=== PATIENT | female | born 1940 | race African-American/Black ===

== ENCOUNTER 2017-04-08 18:21 | Emergency (ER) | payer MEDICARE, MEDICAID ==
--- NOTE | 2017-04-08 19:38 | RAD ---
UPRIGHT PORTABLE CHEST ONE VIEW: 04/08/17 HISTORY: 77-year-old female with altered mental status. Monitor leads overlie the chest. Heart size is within normal limits. The lungs are clear. IMPRESSION: No acute intrathoracic disease. No evidence for pneumonia. POS: [facility]
[2017-04-08 19:57] LABS: #Eosinphils 0.5 thou/uL (0.0-0.7); #Lymphocytes 1.5 thou/uL (1.20-3.40); #Monocytes 0.7 thou/uL (0.11-0.59); #Neutrophils 4.2 thou/uL (1.40-6.50); %Basophils 0.2 % (0.0-1.0); %Eosinophils 7.6 % (0.0-10.0); %Lymphocytes 21.9 % (21.0-51.0); %Monocytes 9.8 % (0.0-10.0); Hematocrit 35.2 % (36.0-47.0); Mean Platelet Volume 7.9 fL (7.4-10.4); Red Blood Cell (RBC) Count 4.57 mill/uL (4.20-5.40); White Blood Cell (WBC) Count 6.9 thou/uL (4.8-10.8)
[2017-04-08 20:09] LABS: ALT (SGPT) 9 U/L (8-55); AST (SGOT) 14 U/L (5-34); Alkaline Phosphatase 97 U/L (40-150); Anion Gap 13 mmol/L (10-20); BUN (Urea Nitrogen) 18 mg/dL (9.8-20.1); Bilirubin, Total 0.3 mg/dL (0.2-1.2); Calc. Creatinine Clearance 0 mL/min (70-130); Calcium 9.2 mg/dL (7.8-10.44); Carbon Dioxide 20 mmol/L (23-31); Chloride 106 mmol/L (98-107); Estimated GFR-MDRD 41; Globulin 3.6 g/dL (2.4-3.5); Protein, Total 6.9 g/dL (6.0-8.3)
[2017-04-08 20:11] LABS: Bilirubin Small (Negative); Blood, Urine Negative (Negative); Glucose, Urine (Dipstick) Negative (Negative); Ketone, Urine Trace mg/dL (Negative); Nitrite Negative (Negative); Protein, Urine (Dipstick) Trace mg/dL (Neg-Trace); Urobilinogen 0.2 mg/dL (0.2-1.0)
[2017-04-08 20:14] LABS: Bacteria/HPF None Seen HPF (None Seen); RBC/HPF 0-3 HPF (0-3); Squamous Epithelial 0-3 HPF (0-3)
[2017-04-08 20:27] LABS: Hyaline Casts/LPF 0-3 HYALINE CAST LPF (0-3 Hyaline)
[2017-04-08] MEDS ORDERED: Haloperidol Lactate 5 MG/ML VIAL ONE (20:31)
== END 2017-04-08 22:04 ==
LOC: ERS 18:21
DX: N39.0 Urinary tract infection, site not specified (principal); Z79.82 Long term (current) use of aspirin; Z79.899 Other long term (current) drug therapy
CPT/HCPCS: 36415; 51701; 71010; 80053; 81003; 81015; 85025; 96361; 96374; A4353; J1630

== ENCOUNTER 2017-06-10 17:10 | Emergency (ER) | payer MEDICARE, MEDICAID ==
--- NOTE | 2017-06-10 18:10 | RAD ---
EXAM: ONE VIEW CHEST 06/10/17 HISTORY: Loss of appetite. COMPARISON: 04/16/17 FINDINGS: Atherosclerosis of the aorta. Normal cardiac silhouette. Pulmonary vessels and hilum are normal. Cost ophrenic angles are clear. No mass. No consolidation. No pneumothorax or osseous abnormalities. IMPRESSION: 1. No acute cardiopulmonary process. 2. Atherosclerosis. POS: [facility]
[2017-06-10 18:33] LABS: Bilirubin Negative (Negative); Blood, Urine Negative (Negative); Glucose, Urine (Dipstick) Negative (Negative); Ketone, Urine Negative (Negative); Nitrite Negative (Negative); Protein, Urine (Dipstick) 30 mg/dL (Neg-Trace); Urobilinogen 0.2 mg/dL (0.2-1.0)
[2017-06-10 18:38] LABS: Bacteria/HPF 4+ HPF (None Seen); RBC/HPF 0-3 HPF (0-3); Squamous Epithelial 0-3 HPF (0-3)
[2017-06-10 18:48] LABS: #Eosinphils 0.6 thou/uL (0.0-0.7); #Lymphocytes 1.4 thou/uL (1.20-3.40); #Monocytes 0.6 thou/uL (0.11-0.59); #Neutrophils 3.1 thou/uL (1.40-6.50); %Basophils 0.4 % (0.0-1.0); %Eosinophils 10.8 % (0.0-10.0); %Lymphocytes 24.9 % (21.0-51.0); %Monocytes 9.7 % (0.0-10.0); Hematocrit 36.2 % (36.0-47.0); Mean Platelet Volume 10.9 fL (7.4-10.4); Red Blood Cell (RBC) Count 4.71 mill/uL (4.20-5.40); White Blood Cell (WBC) Count 5.7 thou/uL (4.8-10.8)
[2017-06-10 18:53] LABS: Hyaline Casts/LPF 4-6 HYALINE CAST LPF (0-3 Hyaline); Yeast-All Forms None Seen HPF (None Seen)
[2017-06-10 18:56] LABS: ALT (SGPT) 7 U/L (8-55); AST (SGOT) 13 U/L (5-34); Alkaline Phosphatase 92 U/L (40-150); Anion Gap 9 mmol/L (10-20); BUN (Urea Nitrogen) 16 mg/dL (9.8-20.1); Bilirubin, Total 0.2 mg/dL (0.2-1.2); Calc. Creatinine Clearance 0 mL/min (70-130); Calcium 8.4 mg/dL (7.8-10.44); Carbon Dioxide 23 mmol/L (23-31); Chloride 108 mmol/L (98-107); Estimated GFR-MDRD 67; Globulin 3.3 g/dL (2.4-3.5); Protein, Total 5.9 g/dL (6.0-8.3)
[2017-06-10 18:57] LABS: Lactic Acid - Sepsis 2.1 mmol/L (0.5-2.2)
--- NOTE | 2017-07-03 13:26 | EKG ---
Test Reason : Blood Pressure : / mmHG Vent. Rate : 058 BPM Atrial Rate : 058 BPM P-R Int : 172 ms QRS Dur : 126 ms QT Int : 484 ms P-R-T Axes : 040 -30 064 degrees QTc Int : 475 ms Sinus bradycardia Left axis deviation Right bundle branch block Abnormal ECG Confirmed by STEVE CHISHOLM ([id number]), food expeditor CHE DUKE ([id number] on 07/03/2017 1:26:20 PM Referred By: Confirmed By:STEVE CHISHOLM
== END 2017-06-10 21:00 | disposition home or self-care (01) ==
LOC: ERS 17:10
DX: N39.0 Urinary tract infection, site not specified (principal); M19.90 Unspecified osteoarthritis, unspecified site; E11.9 Type 2 diabetes mellitus without complications; E78.5 Hyperlipidemia, unspecified; I10 Essential (primary) hypertension; F41.9 Anxiety disorder, unspecified; F32.9 Major depressive disorder, single episode, unspecified; Z79.82 Long term (current) use of aspirin; Z79.899 Other long term (current) drug therapy
CPT/HCPCS: 36415; 51701; 71010; 80053; 81003; 81015; 83605; 85025; 87040; 87077; 87086; 87149; 87186; 93005; 96374; A4353; J0696

== ENCOUNTER 2017-08-03 21:22 | Emergency (ER) | payer MEDICARE, MEDICAID ==
[2017-08-03] MEDS ORDERED: Dexamethasone 10 MG/ML VIAL ONE (22:24)
== END 2017-08-04 02:05 ==
LOC: ERS 21:22
DX: L12.0 Bullous pemphigoid (principal); F03.90 Unspecified dementia, unspecified severity, without behavioral disturbance, psychotic disturbance, mood disturbance, and anxiety; M19.90 Unspecified osteoarthritis, unspecified site; I10 Essential (primary) hypertension; E78.5 Hyperlipidemia, unspecified; K21.9 Gastro-esophageal reflux disease without esophagitis; E11.9 Type 2 diabetes mellitus without complications; F41.9 Anxiety disorder, unspecified; F32.9 Major depressive disorder, single episode, unspecified
CPT/HCPCS: 96374; 96375; J1100; J2270

== ENCOUNTER 2017-09-14 12:55 | Outpatient (CLI) | payer MEDICARE, MEDICAID ==
--- NOTE | 2017-09-14 13:36 | CT ---
CT HEAD NONCONTRAST: HISTORY: Scalp mass. FINDINGS: No comparison. There is no evidence of acute intracranial hemorrhage or infarct. Diffuse cortical a trophy and chronic ischemic small vessel disease are apparent. There is no mass effect or shift of m idline structures. Large area of scalp thickening overlies the left parietooccipital calvarium. It is up to 0.9 cm in depth x 4.4 cm diameter. The swelling contains soft tissue components superiorly and medially and more component laterally and inferiorly. No aggressive destruction of the underlyin g calvarium is apparent. Hyperdense material layers within the posterior aspect of the left globe. There is subtle hyperdensi ty along the posterior medial margin of the right retina. Hemorrhage is favored over neoplasm. Righ t lens is irregular-shaped and displaced posteriorly. IMPRESSION: 1. Mixed density left parietooccipital scalp swelling without underlying osseous destruction. There are no imaging-specific findings about the swelling. It could be related to prior trauma, infection , or other forms of inflammation. 2. Abnormalities of the globes as detailed above. Please consider ophthalmologic correlation. POS: [facility]
== END 2017-09-14 12:56 | disposition home or self-care (01) ==
LOC: CT 12:55
PROVIDERS: ATTEND Family Medicine
DX: R22.0 Localized swelling, mass and lump, head (principal)
CPT/HCPCS: 70450